=== PATIENT | female | born 1975 | race Two or more races ===

== ENCOUNTER 2023-02-21 00:42 | Emergency (ER) | payer MEDICAID ==
[~2023-02-21] VITALS: Ht 154.9 cm; Wt 76.0 kg
[2023-02-21 02:35] VITALS: BP 132/78; PULSE 85; RESP 22; TEMP 98.3
[2023-02-21] MEDS ORDERED: HYDROCODONE/ACETAMINOPHEN 5-325 MG TABLET PO ONE (03:00)
[2023-02-21] MEDS ORDERED: CYCL-448 PO (06:51)
== END 2023-02-21 07:20 | disposition home or self-care (01) ==
LOC: EMS 00:45
DX: S16.1XXA Strain of muscle, fascia and tendon at neck level, initial encounter (principal); R07.89 Other chest pain; V98.8XXA Other specified transport accidents, initial encounter; Y93.89 Activity, other specified; Y92.89 Other specified places as the place of occurrence of the external cause; Y99.8 Other external cause status
CPT/HCPCS: 71101; 72040; 72100; 99284; 73030-TC; Z7502; Z7610